=== PATIENT | female | born 1990 | race African-American/Black ===

== ENCOUNTER 2021-01-12 08:58 | Day surgery (SDC) | payer OTHER ==
[2021-01-11 15:05] VITALS: BMI 19.8
[2021-01-12] MEDS ORDERED: PROPOFOL 20 ML ONE ×2 (12:01→12:09)
[2021-01-12] MEDS ORDERED: MIDAZOLAM HCL 2 MG/2 ML SINGLE DOSE VIAL ONE (12:02)
[2021-01-12] MEDS ORDERED: ONDANSETRON 4 MG/2 ML VIAL ONE (12:05)
[2021-01-12] MEDS ORDERED: DEXAMETHASONE SOD PHOSPHATE 4 MG/1 ML VIAL ONE (12:05)
[2021-01-12] MEDS ORDERED: SUCCINYLCHOLINE CHLORIDE 200 MG/10 ML SYRINGE ONE (12:09)
[2021-01-12] MEDS ORDERED: ALBUTEROL SO4 HFA INHALER IH ONE (13:20)
[2021-01-12] MEDS ORDERED: oxyCODONE HCL 5 MG TABLET PO PRN (13:38)
[2021-01-12] MEDS ORDERED: ONDANSETRON 4 MG/2 ML VIAL IVPUSH PRN (13:38)
[2021-01-12] MEDS ORDERED: LACTATED RINGERS SOLUTION 1,000 ML IV SCH (13:45)
[2021-01-12 14:11] VITALS: TEMP 98.2
[2021-01-12 17:59] VITALS: BP 119/79; PULSE 70
== END 2021-01-12 16:00 | disposition home or self-care (01) ==
LOC: JASU-SURG 08:58
PROVIDERS: ATTEND Specialist
PROC: 0UBL0ZZ Excision of Vestibular Gland, Open Approach (ICD-10-PCS; principal; 2021-01-12 10:30)
DX: N75.0 Cyst of Bartholin's gland (principal)
CPT/HCPCS: 94760